=== PATIENT | female | born 1975 | race Hispanic/Latino ===

== ENCOUNTER 2018-03-27 05:30 | Day surgery (SDC) | payer MEDICAID ==
[~2018-03-27] VITALS: Ht 160 cm; Wt 108.0 kg
[~2018-03-27 05:30] MED LIST: PALI410S IM
[2018-03-27] MEDS ORDERED: SODIUM CHLORIDE 0.9% 1000ML 1,000 ML IV ONE (05:45)
[2018-03-27 05:52] VITALS: BP 129/73
[2018-03-27] MEDS ORDERED: CHOL500051 PO (06:29)
[2018-03-27] MEDS ORDERED: FOLI1TAB15 PO (06:29)
[2018-03-27] MEDS ORDERED: LIRA0.6P SQ (06:29)
[2018-03-27] MEDS ORDERED: EMPA25TA PO (06:29)
[2018-03-27] MEDS ORDERED: linzess (06:29)
[2018-03-27] MEDS ORDERED: trintellix PO (06:29)
[2018-03-27] MEDS ORDERED: CLON2TAB11 PO (06:29)
[2018-03-27] MEDS ORDERED: METO100T14 PO (06:29)
[2018-03-27] MEDS ORDERED: SITA1TAB6 PO (06:29)
[2018-03-27] MEDS ORDERED: SIMV10TA6 PO (06:29)
[2018-03-27] MEDS ORDERED: ZOLP12.52 PO (06:29)
[2018-03-27] MEDS ORDERED: PROPOFOL 10 MG/ML 20ML VIAL IV ONE (06:32)
[2018-03-27] MEDS ORDERED: LIDOCAINE HCL-MPF 2% 5ML VIAL ONE (06:33)
[2018-03-27 06:51] VITALS: BP 108/69
[2018-03-27 06:55] VITALS: BP 115/75
[2018-03-27 07:00] VITALS: BP 114/87
[2018-03-27 07:05] VITALS: BP 118/87
== END 2018-03-27 07:15 | disposition home or self-care (01) ==
LOC: DAH 05:30 → ENDO 05:30
PROVIDERS: ATTEND Internal Medicine
DX: K63.5 Polyp of colon (principal); K64.0 First degree hemorrhoids; K57.30 Diverticulosis of large intestine without perforation or abscess without bleeding; F31.9 Bipolar disorder, unspecified; E11.9 Type 2 diabetes mellitus without complications; F41.9 Anxiety disorder, unspecified; K21.9 Gastro-esophageal reflux disease without esophagitis; E66.9 Obesity, unspecified; E78.5 Hyperlipidemia, unspecified; K59.04 Chronic idiopathic constipation; I10 Essential (primary) hypertension; Z98.890 Other specified postprocedural states; Z79.899 Other long term (current) drug therapy
CPT/HCPCS: 36415; 45380; 82948 ×2; 84703; 88305; A4606; J2704; J3490; J7030